=== PATIENT | female | born 1970 | race Caucasian/White ===

== ENCOUNTER 2016-07-25 14:15 | Emergency (ER) | payer BC ==
[~2016-07-25] VITALS: Ht 175.3 cm; Wt 87.0 kg
[~2016-07-25 14:15] MED LIST: CEPHALEXIN500 M1 PO; DEBROX6.5 % AD; DENIES CURRENT MEDS; FLONASE NASAL50 MCG; MOTRIN800 MG PO; ROBITUSSIN AC10 ML OR; ZITHROMAX250 MG PO
[2016-07-25] MEDS ORDERED: MOTRIN800 MG PO (15:40)
[2016-07-25] MEDS ORDERED: TRAMADOL HYDROC50 MG PO (15:40)
[2016-07-25 15:45] VITALS: BP 132/75
== END 2016-07-25 15:45 | disposition home or self-care (01) | DRG 558 ==
LOC: ED 14:15
DX: M76.51 Patellar tendinitis, right knee (principal); M25.561 Pain in right knee; X58.XXXA Exposure to other specified factors, initial encounter; Y93.01 Activity, walking, marching and hiking; Y92.009 Unspecified place in unspecified non-institutional (private) residence as the place of occurrence of the external cause

== ENCOUNTER 2016-08-30 14:04 | Emergency (ER) | payer BC ==
[~2016-08-30] VITALS: Ht 175.3 cm; Wt 85.0 kg
[~2016-08-30 14:04] MED LIST changes: +TRAMADOL HYDROC50 MG PO
[2016-08-30] MEDS ORDERED: NAPROSYN500 MG PO (15:32)
[2016-08-30 15:35] VITALS: BP 121/74
== END 2016-08-30 15:35 | disposition home or self-care (01) | DRG 605 ==
LOC: ED 14:04
DX: S90.31XA Contusion of right foot, initial encounter (principal); R22.41 Localized swelling, mass and lump, right lower limb; W22.8XXA Striking against or struck by other objects, initial encounter; Y93.89 Activity, other specified; Y92.009 Unspecified place in unspecified non-institutional (private) residence as the place of occurrence of the external cause